=== PATIENT | female | born 2000 | race Caucasian/White ===

== ENCOUNTER 2020-04-24 12:30 | Emergency (ER) | payer BC, OTHER, SELFPAY ==
[2020-04-24] VITALS (8 sets, daily range): BP systolic 106–139; BP diastolic 59–84; PULSE 71–128; RESP 15–27; TEMP 36.4; O2SAT 98–100
--- NOTE | ~2020-04-24 | XR_ITS ---
EXAMINATION: XR chest 1V portable EXAM DATE: 04/24/2020 14:00 INDICATION: Cough and shortness of breath. TECHNIQUE: Portable AP frontal chest x-ray was obtained. There is no prior study for comparison. FINDINGS: The lungs are clear. There are no pleural effusions. The cardiomediastinal silhouette is within normal limits. There is no pneumothorax suspected. The bones and soft tissues are unremarkab le. IMPRESSION: Normal chest x-ray exam. Reviewed, dictated and finalized at location A. OMER CARE ASSOCIATE IMPRESSION: Normal chest x-ray exam.
--- NOTE | ~2020-04-24 | CT_ITS ---
EXAMINATION: CT soft tissue neck w con DATE: 04/24/2020 15:38 INDICATION: Sore throat. TECHNIQUE: Computed tomography (CT) of the neck was performed with 75 mL Omnipaque-350 intravenous co ntrast. Automated exposure control and iterative reconstruction technique were employed. The dose-dequan gth product was 580.77 mGy-cm. COMPARISON: None FINDINGS: There is mild bilateral high internal jugular chain lymphadenopathy. There is enlargement o f the adenoids and palatine tonsils. No abscess. There is no air in the nasopharynx or oropharynx. Th e epiglottis is not well-visualized due to the surrounding soft tissue. There is mild cervical spondy losis. IMPRESSION: 1. Enlarged adenoids and palatine tonsils. No abscess. 2. No air in the nasopharynx or oropharynx. The patient may have been in the middle of swallowing dur ing the scan. Airway management is recommended. I discussed this finding with Dr. Merrill. 3. Mild bilateral cervical lymphadenopathy, likely reactive. Reviewed, dictated and finalized at location B. GER UNIVERSAL IMPRESSION: 1. Enlarged adenoids and palatine tonsils. No abscess. 2. No air in the nasopharynx or oropharynx. The patient may have been in the mi ddle of swallowing during the scan. Airway management is recommended. I discuss ed this finding with Dr. Merrill. 3. Mild bilateral cervical lymphadenopathy, likely reactive.
--- NOTE | 2020-04-24 12:43 | ED.GENADULT ---
HPI - General Adult General Chief complaint: Headache Stated complaint: sore throat Time Seen by Provider: 04/24/20 12:37 Source: patient Mode of arrival: ambulatory Limitations: no limitations History of Present Illness HPI narrative: This patient is a 20 year old female who presents for evaluation of sore throat x 3 days. She states she has throat pain that has been presents for 3 days. She also complains of painful swallow. She states she has been unable to eat due to the pain. She also reports she is having nausea and vomiting, so she is unable to drink as well. She has associated runny nose, congestion. She is unsure of fever. She has been taking ibuprofen for her pain and she last took last night. Onset (ago): day(s) (3) Related Data Allergies Allergy/AdvReac Type Severity Reaction Status Date / Time No Known Allergies Allergy Verified 04/24/20 12:49 Review of Systems Review of Systems: All systems reviewed & are unremarkable except as noted in HPI and below Constitutional: Constitutional: Denies chills and Denies fever(s) ENT: Reports nasal congestion and Reports sore throat Cardiovascular: Cardiovascular: Denies chest pain Respiratory: Respiratory: Denies cough and Denies dyspnea Gastrointestinal: Gastrointestinal: Denies abdominal pain, Denies diarrhea, Reports nausea and Reports vomiting PMFSH Past Medical History Medical History (Updated 04/24/20 @ 16:55 by Adela Merrill MD) Patient denies medical problems Surgical History Surgical History (Updated 04/24/20 @ 22:39 by Adela Merrill MD) No significant past surgical history Social History Social History (Updated 04/24/20 @ 22:39 by Adela Merrill MD) Smoking status: Current some day smoker Substance use type: marijuana Exam Const: General: alert Orientation/consciousness: patient oriented x3 HENMT: Ears: external ears normal and TM's normal bilaterally Face and sinus: normal facial exam and sinuses nontender Mouth: Yes moist mucous membranes Throat: uvula midline, abnormal tonsil bilateral erythema and hypertrophy and posterior oropharynx abnormal erythema Other: no stridor Eyes: Pupils: Equal, round and reactive pupils present EOM: EOMs intact bilaterally Resp: Effort & Inspection: normal respiratory effort and no retractions Auscultation: clear to auscultation bilaterally Cardio: Rate: regular rate Rhythm: regular rhythm GI: GI Palp: Yes Soft to palpation, No Tenderness to palpation present (GI) and No Guarding due to palpation present (GI) Auscultation: normal bowel sounds Skin: Other: diaphoretic Neuro: General: patient oriented x3 and moves all extremities Course Reevaluation(s) Reevaluation #1: Patient states she feels better. She is able to swallow. She has not stridor. I reviewed her airway, I do not believe she has complete obstruction. She understands plan to discharge with antibiotics. She was instructed to return with difficulty breathing, worsening symptoms and vomiting. Date: 04/24/20 Time: 16:53 Vital Signs Vital signs: Vital Signs Temperature 97.5 F L 04/24/20 12:45 Pulse Rate 128 H 04/24/20 12:45 Respiratory Rate 18 04/24/20 12:45 Blood Pressure 139/84 04/24/20 12:45 Pulse Oximetry 98 04/24/20 12:45 Temperature 97.5 F L 04/24/20 12:45 Pulse Rate 71 04/24/20 17:23 Respiratory Rate 27 H 04/24/20 17:23 Blood Pressure 118/69 04/24/20 17:23 Pulse Oximetry 98 04/24/20 17:23 Medical Decision Making Vital Signs Vital Signs: Vital Signs Temperature 97.5 F L 04/24/20 12:45 Pulse Rate 128 H 04/24/20 12:45 Respiratory Rate 18 04/24/20 12:45 Blood Pressure 139/84 04/24/20 12:45 Pulse Oximetry 98 04/24/20 12:45 Temperature 97.5 F L 04/24/20 12:45 Pulse Rate 71 04/24/20 17:23 Respiratory Rate 27 H 04/24/20 17:23 Blood Pressure 118/69 04/24/20 17:23 Pulse Oximetry 98 04/24/20 17:23 Lab Data Lab results r
[2020-04-24] MEDS: SODIUM CHLORIDE 0.9% IV 1,000 ML 999 ML IV CONT ×2 (12:53→13:51)
[2020-04-24] MEDS: KETOROLAC 30 MG/ML VIAL (*BKC) IV PUSH (12:54)
[2020-04-24] MEDS: ONDANSETRON INJ 4 MG/2 ML VIAL IV PUSH ×2 (12:54→13:51)
[2020-04-24] MEDS: DEXAMETHASONE SOD PHOS INJ 4 MG/ML VIAL 10 MG IM (12:56)
[2020-04-24 13:05] LABS: Basophils Absolute Auto 0.1 K/mm3 (0.0-0.1); Basophils Percent Auto 0.3 % (0.2-1.2); Eosinophils Absolute Auto 0.2 K/mm3 (0-0.3); Eosinophils Percent Auto 1.1 % (0-4.4); Hematocrit 41.9 % (37.0-47.0); Hemoglobin 14.9 g/dL (12.0-15.0); Immature Granulocyte Percent A 0.7 % (0-0.5); Lymphocytes Absolute Auto 1.09 K/mm3 (0.9-3.2); Lymphocytes Percent Auto 7.4 % (18.3-44.2); Mean Corpuscular HGB Conc 35.6 g/dl (32-36); Mean Corpuscular Hemoglobin 31.5 pg (26-34); Mean Corpuscular Volume 88.6 fl (80-100); Monocytes Absolute Auto 1.8 K/mm3 (0.1-0.6); Monocytes Percent Auto 12.4 % (2.6-8.5); Neutrophils Absolute Auto 11.4 K/mm3 (1.3-6.7); Neutrophils Percent Auto 78.1 % (45.5-73.1); Platelet Count Result 157 k/mm3 (150-375); Red Blood Count 4.73 M/mm3 (4.2-5.4); Red Cell Distribution Width 12.2 % (11.5-14.5); White Blood Count 14.6 K/mm3 (4.5-10.0)
[2020-04-24 13:19] LABS: Alanine Aminotransferase 99 U/L (4-35); Albumin Level 4.4 g/dL (3.5-5.1); Alkaline Phosphatase 82 U/L (38-126); Anion Gap 7 mmol/L (8-16); Aspartate Amino Transferase 51 U/L (14-36); Bilirubin,Total 0.8 mg/dL (0.2-1.3); Blood Urea Nitrogen 9 mg/dL (7-17); Calcium 9.4 mg/dL (8.4-10.2); Carbon Dioxide 24 mmol/L (22-30); Chloride 106 mmol/L (98-107); Estimated CRCL calculation 94 ml/min; Estimated Glomerular Filt Rate > 60; Glucose 133 mg/dL (65-105); Potassium 3.9 mmol/L (3.4-5.0); Sodium 137 mmol/L (137-145)
[2020-04-24 14:37] LABS: Negative Monotest Control Negative (Negative); Positive Monotest Control Positive (Positive)
[2020-04-24 14:45] LABS: Monoscreen Negative (Negative)
[2020-04-24] MEDS: BELLADONNA ALK/PHENOB ELIX 10 ML, MAG HYDROX/ALUMINUM HYD/SIMETH 30 ML, LIDOCAINE HCL 2... PO (16:07)
[2020-04-24 21:58] LABS: SARS-CoV-2 RNA PCR Negative
== END 2020-04-24 17:31 | disposition home or self-care (01) ==
PROVIDERS: Emergency Provider General Practice; Family Provider Pediatrics; PCP Emergency Medicine
DX: J02.9 Acute pharyngitis, unspecified (principal); Z20.822 Contact with and (suspected) exposure to COVID-19; R11.2 Nausea with vomiting, unspecified
CPT/HCPCS: 36415; 70491; 71045; 80053; 81025; 85025; 86308; 87081; 87804; 87880; 96361; 96365; 96372; 96375; 96376; 99284; A9270; C9803; J0131; J1100; J1885; J2405; J7030; Q9967; U0003; U0005

== ENCOUNTER → 2020-12-26 01:43 | Outpatient (CLI) | payer BC, SELFPAY ==
[2020-12-26 17:06] LABS: SARS-CoV-2 RNA PCR Negative
== END ==
PROVIDERS: PCP Emergency Medicine; Visit Provider Emergency Medicine
DX: B34.9 Viral infection, unspecified (principal); Z20.822 Contact with and (suspected) exposure to COVID-19
CPT/HCPCS: C9803; U0003; U0005

== ENCOUNTER 2021-05-05 11:02 | Emergency (ER) | payer BC, SELFPAY ==
--- NOTE | ~2021-05-05 | CT_ITS ---
EXAMINATION: CT brain wo con DATE: 05/05/2021 11:59 INDICATION: Headache. TECHNIQUE: Computed tomography (CT) of the head was performed without intravenous contrast. The mA wa s adjusted according to patient size. Iterative reconstruction technique was employed. The dose-lengt h product was 605.33 mGy-cm. COMPARISON: Head CT 11/03/2018 FINDINGS: There is no intracranial hemorrhage, acute infarction, or abnormal intracranial mass lesion . The ventricles are normal in size. The orbits are normal. The paranasal sinuses are clear. The mast oid air cells are normal. IMPRESSION: 1. Normal brain. Reviewed, dictated and finalized at location A. AND POULTRY INSPECTOR IMPRESSION: 1. Normal brain.
--- NOTE | ~2021-05-05 | XR_ITS ---
EXAMINATION: XR chest 2V DATE: 05/05/2021 12:02 INDICATION: Vomiting. Cough. TECHNIQUE: Frontal and lateral views of the chest were obtained. COMPARISON: Chest single view 04/24/2020, chest CT 11/03/2018 FINDINGS: The chest demonstrates clear lungs without pneumonia, pleural effusion, or pneumothorax. Th e heart size is normal. IMPRESSION: 1. No acute cardiopulmonary disease. Reviewed, dictated and finalized at location A. LAINT CLERK
[2021-05-05 11:14] VITALS: BP 146/85; PULSE 110; RESP 16; TEMP 37.1; O2SAT 100
--- NOTE | 2021-05-05 11:24 | ED.HA ---
HPI - Headache General Chief Complaint: Headache Stated Complaint: vomiting blood Time Seen by Provider: 05/05/21 11:23 Source: patient Mode of arrival: ambulatory Limitations: no limitations History of Present Illness HPI Narrative: The patient is a 21-year-old female with a history of psoriasis presenting for evaluation of headache, nausea, vomiting. Patient states she began to have a dull, aching headache in her forehead which is mild in nature last night around midnight while she was watching television. Patient denies any eye pain, photophobia. Patient states that she went to sleep, headache was very mild at that point this morning, headache has persisted although patient states it did not awaken her from sleep. She denies any thunderclap sensation of the pain. She states that the headache pain this morning caused her to be nauseous and what has caused her to vomit 6 times. Patient reports that she had some blood streaking present in her emesis which is what prompted her to visit an urgent care and then the patient was referred to our facility patient denies any focal weakness or numbness. She reports a sore feeling in her neck. She denies any fever, chills, cough, shortness of breath or abdominal pain. She denies any diarrhea. Patient states that she ate a hamburger yesterday that may not have been fully cooked. She denies any other food indiscretions. She denies recent illnesses. No known history of Covid. Patient reports history of headache in the past. States that this is a more severe headache than in the past however. She is not on any immune modulators for her psoriasis. Denies history of diagnosed migraine. Related Data Allergies Allergy/AdvReac Type Severity Reaction Status Date / Time No Known Allergies Allergy Verified 05/05/21 11:29 Review of Systems Review of Systems: CONSTITUTIONAL: Denies fever, chills, or sweats. EYES: Denies visual changes, redness, or discharge. ENT: Denies rhinorrhea, congestion, sore throat, or otalgia. CARDIOVASCULAR: Denies chest pain, palpitations, or edema. RESPIRATORY: Denies cough or dyspnea. GASTROINTESTINAL: Denies abdominal pain, reports nausea and vomiting, denies diarrhea GENITOURINARY: Denies dysuria or hematuria. SKIN: Denies rash or itching. MUSCULOSKELETAL: Denies back pain, joint pain, or myalgia. NEUROLOGIC: Reports headache without focal numbness, or weakness. [facility] Past Medical History Medical History (Updated 05/05/21 @ 14:02 by Ana Barrios MD) Patient denies medical problems Surgical History Surgical History (Updated 05/05/21 @ 12:02 by Ana Barrios MD) No significant past surgical history Social History Social History Smoking status: Current some day smoker Substance use type: marijuana Exam Narrative: GENERAL: Awake, alert, conversant HEAD: Normocephalic, atraumatic. EYES: PERRLA and EOMI. ENT: Nares clear, no rhinorrhea or epistaxis. Mucous membranes moist. NECK: Supple. CHEST: No respiratory distress, breathing even and non labored HEART: Regular rate, sinus rhythm ABDOMEN:Non distended, non tender EXTREMITIES: Normal range of motion. No edema. SKIN: Warm, dry, no rash. NEURO:No focal deficits. Alert and oriented x3. Finger to nose intact bilaterally. EOMs intact without nystagmus. No facial droop/asymmetry noted bilaterally. Grimace intact. Intact sensation in face. Hearing intact bilaterally. Shoulder shrug intact. Strength 5/5 bilateral upper extremities. Strength 5/5 bilateral lower extremities. Reflexes 2+ patellar. Heel to nava intact bilaterally. Ambulatory exam deferred. Course Vital Signs Vital signs: Vital Signs Temperature 37.1 C 05/05/21 11:14 Pulse Rate 110 H 05/05/21 11:14 Respiratory Rate 16 05/05/21 11:14 Blood Pressure 146/85 H 05/05/21 11:14 Pulse Oximetry 100 05/05/21 11:14 Temperature 37.1 C 05/05/21 11:14 Pulse Rate 78
--- NOTE | 2021-05-05 11:47 | ECG_ITS ---
Measurements Intervals [place] Rate: 89 P: 33 MS: 146 QRS: 39 QRSD: 92 T: 17 QT: 353 QTc: 430 Interpretive Statements SINUS RHYTHM NORMAL ECG Electronically Signed On 05-05-2021 12:55:19 CORPORATE COMPLIANCE OFFICER by Rio Mcconnell D.O.
[2021-05-05] MEDS: METOCLOPRAMIDE HCL INJ 10 MG/2 ML VIAL IV PUSH (12:07)
[2021-05-05] MEDS: SODIUM CHLORIDE 0.9% IV 1,000 ML 999 ML IV CONT (12:07)
[2021-05-05 12:16] LABS: Basophils Absolute Auto 0.1 K/mm3 (0.0-0.1); Basophils Percent Auto 0.9 % (0.2-1.2); Eosinophils Absolute Auto 0.2 K/mm3 (0-0.3); Eosinophils Percent Auto 3.7 % (0-4.4); Hemoglobin 15.6 g/dL (12.0-15.0); Immature Granulocyte Absolute 0.09 K/mm3 (0.00-0.031); Immature Granulocyte Percent A 1.5 % (0-0.5); Lymphocytes Absolute Auto 0.38 K/mm3 (0.9-3.2); Lymphocytes Percent Auto 6.5 % (18.3-44.2); Mean Corpuscular HGB Conc 33.9 g/dl (32-36); Mean Corpuscular Volume 91.3 fl (80-100); Mean Platelet Volume 12.6 fl (7.4-10.4); Monocytes Absolute Auto 0.9 K/mm3 (0.1-0.6); Monocytes Percent Auto 15.7 % (2.6-8.5); Neutrophils Absolute Auto 4.2 K/mm3 (1.3-6.7); Neutrophils Percent Auto 71.7 % (45.5-73.1); Platelet Count Result 150 k/mm3 (150-375); Red Blood Count 5.04 M/mm3 (4.2-5.4); Red Cell Distribution Width 12.6 % (11.5-14.5); White Blood Count 5.9 K/mm3 (4.5-10.0)
[2021-05-05 12:27] LABS: Add Urine Microscopic? YES; Alanine Aminotransferase 345 U/L (4-35); Alkaline Phosphatase 67 U/L (38-126); Anion Gap 7 mmol/L (8-16); Appearance Urine Clear (Clear); Aspartate Amino Transferase 140 U/L (14-36); Bacteria Urine Trace /hpf; Bilirubin Urine Negative (Negative); Bilirubin,Total 0.4 mg/dL (0.2-1.3); Blood Urea Nitrogen 10 mg/dL (7-17); Blood Urine Negative (Negative); Calcium 9.7 mg/dL (8.4-10.2); Carbon Dioxide 21 mmol/L (22-30); Chloride 106 mmol/L (98-107); Color Urine Yellow (Yellow); Estimated CRCL calculation 93 ml/min; Estimated Glomerular Filt Rate > 60; Glucose 126 mg/dL (65-110); Glucose Urine UA Negative (Negative); Ketones Urine Negative (Negative); Leukocyte Esterase Ur Negative LEU/UL (Negative); Mucus Urine Few /lpf; Nitrate Urine Negative (Negative); Potassium 4.2 mmol/L (3.4-5.0); Protein Urine 1+ mg/dL (Negative); Prothrombin Time 12.7 Seconds (11.1-14.7); RBC Urine 0-2 /hpf (0-2); Sodium 134 mmol/L (137-145); Squamous Epithelial Cell Urine Many /hpf (Few); Urobilinogen Urine Negative mg/dL (<2.0); WBC Urine 0-3 /hpf
[2021-05-05 12:28] LABS: Partial Thromboplastin Time 29.1 SECONDS (22.3-36.8)
[2021-05-05 12:34] LABS: Specific Grav Ur 1.031 (1.001-1.035)
[2021-05-05 12:37] LABS: Troponin I < 0.012 ng/mL (0.000-0.034)
[2021-05-05] MEDS: MAGNESIUM SULF 2 GM/WATER 50ML 2 GM/50 ML BAG IVPB (13:03)
[2021-05-05 14:45] VITALS: BP 134/72; PULSE 78; RESP 18; O2SAT 99
[2021-05-05 15:23] LABS: Monoscreen Negative (Negative); Negative Monotest Control Negative (Negative); Positive Monotest Control Positive (Positive)
[2021-05-05 17:31] LABS: SARS-CoV-2 RNA PCR Positive
== END 2021-05-05 14:46 | disposition home or self-care (01) ==
PROVIDERS: Emergency Provider Emergency Medicine; PCP Emergency Medicine
DX: U07.1 COVID-19 (principal); R11.2 Nausea with vomiting, unspecified; R51.9 Headache, unspecified; R74.01 Elevation of levels of liver transaminase levels; F17.200 Nicotine dependence, unspecified, uncomplicated
CPT/HCPCS: 36415; 70450; 71046; 80053; 81001; 81025; 84484; 85025; 85610; 85730; 86308; 93005; 96365; 96367; 96375; 99284; C9803; J0131; J1100; J2765; J3475; J7030; U0003; U0005

== ENCOUNTER 2021-08-07 19:51 | Emergency (ER) | payer BC, SELFPAY ==
--- NOTE | ~2021-08-07 | XR_ITS ---
EXAMINATION: XR chest 2V DATE: 08/07/2021 22:32 INDICATION: Medial chest pain on inspiration. TECHNIQUE: Frontal and lateral views of the chest were obtained. COMPARISON: Chest 2 views 05/05/2021, chest CT 11/03/2018 FINDINGS: The chest demonstrates clear lungs without pneumonia, pleural effusion, or pneumothorax. Th e heart size is normal. IMPRESSION: 1. No acute cardiopulmonary disease. Reviewed, dictated and finalized at location A.
[2021-08-07 19:54] VITALS: BP 144/98; PULSE 98; RESP 18; TEMP 36.6; O2SAT 98
--- NOTE | 2021-08-07 22:03 | ECG_ITS ---
Measurements Intervals [place] Rate: 76 P: 37 AL: 167 QRS: 40 QRSD: 93 T: 26 QT: 376 QTc: 424 Interpretive Statements SINUS RHYTHM WITH SINUS ARRHYTHMIA NORMAL ECG Electronically Signed On 08-08-2021 6:40:38 CDT by Rio Mcconnell D.O.
--- NOTE | 2021-08-07 22:05 | ED.GENADULT ---
HPI - General Adult General Chief complaint: Shortness of Breath/Dyspnea <ENID Liu Last Filed: 08/08/21 03:05> Stated complaint: cant breathe <ENID Liu Last Filed: 08/08/21 03:05> Time Seen by Provider: 08/07/21 21:53 <ENID Liu Last Filed: 08/08/21 03:05> History of Present Illness HPI narrative: Patient is a 21-year-old female who presents emergency department for evaluation of some midsternal chest pain onset today. Patient states the pain is only there with deep respirations, and the pain is making it hard to breathe completely. She also reports a clicking sensation in her throat, but denies sore throat, trouble swallowing, throat swelling, fevers, chills, preceding illness. Denies known foreign body ingestion. <ENID Liu Last Filed: 08/08/21 03:05> Related Data Allergies/adverse reactions: Allergies Allergy/AdvReac Type Severity Reaction Status Date / Time No Known Allergies Allergy Verified 05/05/21 11:29 <ENID Liu Last Filed: 08/08/21 03:05> Review of Systems Review of Systems: Gen.: Denies fevers or chills Eyes: Denies eye pain or visual change ENT: Denies congestion Respiratory: Denies shortness of breath or cough CV: Reports chest pain. GI: Denies abdominal pain nausea, emesis or diarrhea : denies burning, urgency, frequency or hematuria Musculoskeletal: Denies back pain or muscle pain Neuro: Denies numbness, tingling, weakness or focal weakness Skin: Denies rash Except as documented, all other systems reviewed and negative <ENID Liu Last Filed: 08/08/21 03:05> All systems reviewed & are unremarkable except as noted in HPI and below <ENID Liu Last Filed: 08/08/21 03:05> [facility] Past Medical History Medical History: Medical History Patient denies medical problems <Eunice Arciniega PA-C - Last Filed: 08/08/21 03:05> Surgical History Surgical History: Surgical History No significant past surgical history <Eunice Arciniega PA-C - Last Filed: 08/08/21 03:05> Social History Social History: Social History Smoking status: Current some day smoker Substance use type: marijuana <Eunice Arciniega PA-C - Last Filed: 08/08/21 03:05> Exam Narrative: APPEARANCE: Well appearing, no pain in distress, well-nourished. Head normocephalic and atraumatic. EYES: PERRLA/EOMI, conjunctivae clear NOSE: No nasal drainage EARS: External ear normal in appearance THROAT: Nontender thyromegaly. Oropharynx is clear. Mucous membranes are moist. NECK: Nontender thyromegaly noted. No focal nodules palpated. Supple. No adenopathy, no masses. RESPIRATORY: Airway patent, respirations nonlabored. Clear to auscultation bilaterally, no rales, rhonchi, wheezing. CARDIOVASCULAR: Regular rate and rhythm without murmurs, rubs, or gallops. ABDOMINAL: Normoactive bowel sounds. Soft, nontender, nondistended. No rebound tenderness or guarding. MUSCULOSKELETAL: Equal radial pulses. Extremities are warm and well-perfused. Moves all extremities well. No edema. NEURO: Normal speech. No focal neurologic deficits. SKIN: Skin is warm and dry. No rashes. PSYCHIATRIC: Normal affect/mood. <Eunice Arciniega PA-C - Last Filed: 08/08/21 03:05> Course MANAGER CARDIAC/PA Physician Supervision I did not see this patient nor was the care plan discussed with me, labs and imaging reviewed. I was available for evaluation and consultation, I agree with the documentation <Vincent Dyer MD - Last Filed: 08/08/21 03:30> Vital Signs Vital signs: Vital Signs Temperature 36.6 C 08/07/21 19:54 Pulse Rate 98 08/07/21 19:54 Respiratory Rate 18 08/07/21 19:54 Bloo
[2021-08-07 23:13] LABS: Basophils Absolute Auto 0.1 K/mm3 (0.0-0.1); Basophils Percent Auto 0.8 % (0.2-1.2); Eosinophils Absolute Auto 0.5 K/mm3 (0-0.3); Hematocrit 44.9 % (37.0-47.0); Immature Granulocyte Absolute 0.04 K/mm3 (0.00-0.031); Immature Granulocyte Percent A 0.6 % (0-0.5); Lymphocytes Absolute Auto 2.23 K/mm3 (0.9-3.2); Lymphocytes Percent Auto 31.3 % (18.3-44.2); Mean Corpuscular HGB Conc 33.4 g/dl (32-36); Mean Corpuscular Hemoglobin 30.5 pg (26-34); Mean Corpuscular Volume 91.4 fl (80-100); Monocytes Absolute Auto 0.7 K/mm3 (0.1-0.6); Monocytes Percent Auto 9.7 % (2.6-8.5); Neutrophils Absolute Auto 3.6 K/mm3 (1.3-6.7); Neutrophils Percent Auto 50.6 % (45.5-73.1); Platelet Count Result 163 k/mm3 (150-375); Red Blood Count 4.91 M/mm3 (4.2-5.4); Red Cell Distribution Width 12.5 % (11.5-14.5); White Blood Count 7.1 K/mm3 (4.5-10.0)
[2021-08-07 23:24] LABS: Lipase 42 U/L (23-300)
[2021-08-07 23:30] LABS: Alanine Aminotransferase 209 U/L (4-35); Albumin Level 4.2 g/dL (3.5-5.1); Alkaline Phosphatase 63 U/L (38-126); Anion Gap 8 mmol/L (8-16); Aspartate Amino Transferase 89 U/L (14-36); Bilirubin,Total 0.9 mg/dL (0.2-1.3); Blood Urea Nitrogen 8 mg/dL (7-17); Carbon Dioxide 24 mmol/L (22-30); Chloride 106 mmol/L (98-107); Estimated CRCL calculation 104 ml/min; Estimated Glomerular Filt Rate > 60; Glucose 91 mg/dL (65-110); Potassium 3.8 mmol/L (3.4-5.0); Sodium 138 mmol/L (137-145)
[2021-08-07] MEDS: BELLADONNA ALK/PHENOB ELIX 10 ML, MAG HYDROX/ALUMINUM HYD/SIMETH 30 ML, LIDOCAINE HCL 2... PO (23:41)
[2021-08-08 00:02] VITALS: PULSE 75; RESP 18; O2SAT 100
[2021-08-08 00:04] VITALS: O2SAT 100
[2021-08-08 00:53] LABS: D Dimer 0.34 ug/mL (<0.48)
== END 2021-08-08 02:15 | disposition home or self-care (01) ==
PROVIDERS: Physician Assistant; Emergency Provider Emergency Medicine; PCP Emergency Medicine
DX: R09.89 Other specified symptoms and signs involving the circulatory and respiratory systems (principal); F17.200 Nicotine dependence, unspecified, uncomplicated
CPT/HCPCS: 36415; 71046; 80053; 83690; 84443; 85025; 85380; 93005; 99283; A9270

== ENCOUNTER → 2021-09-04 11:27 | Outpatient (CLI) | payer BC, SELFPAY ==
--- NOTE | ~2021-09-04 | US_ITS ---
US abdomen complete EXAMINATION: US Abdomen Complete INDICATION: Liver disease. PROCEDURE: Realtime High Resolution abdomen ultrasound. COMPARISON: No prior studies for comparison FINDINGS: There are gallstones. Common bile duct measures 5 mm. Liver echotexture is increased, consistent with fatty infiltration.. Pancreas within normal limits. Pancreatic tail is obscured by bowel gas. Spleen is unremarkeable. Renal echotexture is within norm al limits bilaterally without hydronephrosis, contour deforming mass or renal stone. Right kidney yashira sures 10.3 cm. Left kidney measures 11.3 cm. Visualized aspects of the aorta and IVC are within normal limits. Portal vein is patent. No sonograph ic Vidal's sign indicated by the technologist. IMPRESSION: 1: Cholelithiasis. 2: Hepatic steatosis. Reviewed, dictated and finalized at location A.
--- NOTE | ~2021-09-04 | US_ITS ---
EXAMINATION: US thyroid DATE: 09/04/2021 12:03 INDICATION: Goiter. TECHNIQUE: Multiple ultrasound images of the thyroid were obtained. COMPARISON: Neck CT 04/24/2020 FINDINGS: The right thyroid lobe measures 4.8 x 1.8 x 1.6 cm. The left thyroid lobe measures 4.4 x 1.5 x 1.7 c m. There is normal echotexture and echogenicity throughout the thyroid gland. No discrete nodules id entified. Normal vascular flow is present. IMPRESSION: 1. Normal thyroid. Reviewed, dictated and finalized at location A. IMPRESSION: 1. Normal thyroid.
== END ==
PROVIDERS: PCP Emergency Medicine; Visit Provider Emergency Medicine
DX: K76.0 Fatty (change of) liver, not elsewhere classified (principal); R04.9 Hemorrhage from respiratory passages, unspecified; K80.20 Calculus of gallbladder without cholecystitis without obstruction
CPT/HCPCS: 76536; 76700

== ENCOUNTER 2022-08-24 17:18 | Emergency (ER) | payer BC, SELFPAY ==
[2022-08-24 17:41] VITALS: BP 132/78; PULSE 95; RESP 18; TEMP 36.5; O2SAT 98
[2022-08-24 17:42] LABS: Basophils Absolute Auto 0.1 K/mm3 (0.0-0.1); Basophils Percent Auto 0.7 % (0.2-1.2); Eosinophils Absolute Auto 0.6 K/mm3 (0-0.3); Eosinophils Percent Auto 6.2 % (0-4.4); Hematocrit 39.8 % (37.0-47.0); Hemoglobin 13.5 g/dL (12.0-15.0); Immature Granulocyte Absolute 0.04 K/mm3 (0.00-0.031); Immature Granulocyte Percent A 0.4 % (0-0.5); Immature Platelet Fraction Pct 10.7 % (0.9-11.2); Lymphocytes Absolute Auto 1.93 K/mm3 (0.9-3.2); Mean Corpuscular HGB Conc 33.9 g/dl (32-36); Mean Corpuscular Hemoglobin 31.1 pg (26-34); Mean Corpuscular Volume 91.7 fl (80-100); Mean Platelet Volume 11.5 fl (7.4-10.4); Monocytes Absolute Auto 0.8 K/mm3 (0.1-0.6); Neutrophils Absolute Auto 5.8 K/mm3 (1.3-6.7); Neutrophils Percent Auto 62.7 % (45.5-73.1); Platelet Count Result 148 k/mm3 (150-375); Red Blood Count 4.34 M/mm3 (4.2-5.4); Red Cell Distribution Width 12.6 % (11.5-14.5); White Blood Count 9.2 K/mm3 (4.5-10.0)
[2022-08-24 17:50] LABS: Alanine Aminotransferase 84 U/L (6-35); Albumin Level 4.2 g/dL (3.5-5.1); Alkaline Phosphatase 53 U/L (38-126); Anion Gap 6 mmol/L (8-16); Aspartate Amino Transferase 40 U/L (14-36); Bilirubin,Total 0.5 mg/dL (0.2-1.3); Blood Urea Nitrogen 14 mg/dL (7-17); Calcium 8.9 mg/dL (8.4-10.2); Carbon Dioxide 30 mmol/L (22-30); Chloride 102 mmol/L (98-107); Estimated CRCL calculation 103 ml/min; Estimated Glomerular Filt Rate > 60; Glucose 87 mg/dL (65-110); Lipase 90 U/L (23-300); Potassium 3.7 mmol/L (3.4-5.0); Sodium 138 mmol/L (137-145)
[2022-08-24 17:56] LABS: Appearance Urine Clear (Clear); Bilirubin Urine Negative (Negative); Blood Urine Negative (Negative); Color Urine Yellow (Yellow); Glucose Urine UA Negative (Negative); Ketones Urine Negative (Negative); Leukocyte Esterase Ur Negative LEU/UL (Negative); Nitrate Urine Negative (Negative); Protein Urine Negative (Negative); Specific Grav Ur 1.023 (1.001-1.035)
[2022-08-24 18:02] LABS: Add Urine Microscopic? NO
[2022-08-24] MEDS: KETOROLAC 15 MG/ML VIAL (*BKC) IV PUSH (21:23)
--- NOTE | 2022-08-24 21:36 | ED.GENADULT ---
HPI - General Adult General Chief complaint: Nausea/Vomiting/Diarrhea <ENID Schilling Last Filed: 08/25/22 01:13> Stated complaint: n/v <ENID Schilling Last Filed: 08/25/22 01:13> Time Seen by Provider: 08/24/22 21:01 <ENID Schilling Last Filed: 08/25/22 01:13> Source: patient <ENID Schilling Last Filed: 08/25/22 01:13> Mode of arrival: ambulatory <ENID Schilling Last Filed: 08/25/22 01:13> Limitations: no limitations <ENID Schilling Last Filed: 08/25/22 01:13> History of Present Illness HPI narrative: This is a 22-year-old female presents to the ED with chief complaint of headache and nausea and vomiting. She states this all started earlier today. She has a history of headaches in the past. Patient reports a bandlike distribution of pain to bilateral temples. She states she is still nauseous. Reports over 5 episodes of vomiting. Denies neck stiffness or neck pain. She states after she had the episodes of vomiting she started to become a little light headed. She denies any LOC. Denies any abdominal pain, fevers, chills, diarrhea, cough, chest pain, shortness of breath. <ENID Schilling Last Filed: 08/25/22 01:13> Related Data Allergies/adverse reactions: Allergies Allergy/AdvReac Type Severity Reaction Status Date / Time No Known Allergies Allergy Verified 05/05/21 11:29 <Nabil Avilez PA-C - Last Filed: 08/25/22 01:13> Review of Systems Review of Systems: CONSTITUTIONAL: Denies fever, chills, or sweats. EYES: Denies visual changes, redness, or discharge. ENT: Denies rhinorrhea, congestion, sore throat, or otalgia. CARDIOVASCULAR: Denies chest pain, palpitations, or edema. RESPIRATORY: Denies cough or dyspnea. GASTROINTESTINAL: See HPI GENITOURINARY: Denies dysuria or hematuria. SKIN: Denies rash or itching. MUSCULOSKELETAL: Denies back pain, joint pain, or myalgia. NEUROLOGIC: See HPI PSYCHIATRIC: Denies anxiety or depression. <Nabil Avilez PA-C - Last Filed: 08/25/22 01:13> PMFSH Past Medical History Medical History: Medical History Patient denies medical problems <Nabil Avilez PA-C - Last Filed: 08/25/22 01:13> Surgical History Surgical History: Surgical History No significant past surgical history <Nabil Avilez PA-C - Last Filed: 08/25/22 01:13> Social History Social History: Social History Smoking status: Current some day smoker Substance use type: marijuana <Nabil Avilze PA-C - Last Filed: 08/25/22 01:13> Exam Narrative: GENERAL: Well-appearing, well-nourished, and in no acute distress. HEAD: Normocephalic, atraumatic. Mild tenderness to the temporal scalp bilaterally. EYES: PERRLA and EOMI. ENT: Nares clear, no rhinorrhea or epistaxis. Mucous membranes moist. Oropharynx without tonsillar hypertrophy exudate or other lesions. NECK: Supple. No adenopathy or masses. CHEST: No respiratory distress. Clear to auscultation. No wheezes rales or rhonchi HEART: Regular rate and rhythm. No murmur heard. Slightly weak pulses throughout the extremities. ABDOMEN: Soft, nontender, nondistended, normal active bowel sounds. MSK: Normal range of motion. No edema. SKIN: Warm, dry, no rash. Decreased skin turgor. No pallor. NEURO: Alert and oriented x3. No focal deficits. Cranial nerves II through XII intact. PSYCH: Normal mood and affect. <Nabil Avilez PA-C - Last Filed: 08/25/22 01:13> Course TEST BAKER/PA Physician Supervision This is a was performed by both a physician and an APC. I performed all aspects of the MDM as documented w/ the following additions: 22-year-old female presenting with headache. This is her typical headache and there are no concerning findings on history and physical.
[2022-08-24] MEDS: ONDANSETRON INJ 4 MG/2 ML VIAL IV PUSH (22:15)
[2022-08-24] MEDS: PROCHLORPERAZINE EDISYLATE 10 MG/2 ML VIAL IV PUSH (22:15)
[2022-08-24] MEDS: diphenhydrAMINE HCl INJ 50 MG/ML VIAL 25 MG IV PUSH (22:15)
[2022-08-24 22:16] VITALS: BP 123/74; PULSE 60; RESP 14; TEMP 36.9; O2SAT 97
[2022-08-24] MEDS: SODIUM CHLORIDE 0.9% IV 1,000 ML 999 ML IV CONT (22:16)
== END 2022-08-25 00:30 | disposition home or self-care (01) ==
PROVIDERS: Preventive Medicine Aerospace Medicine; Emergency Provider Physician Assistant; PCP Emergency Medicine
DX: R51.9 Headache, unspecified (principal)
CPT/HCPCS: 36415; 80053; 81003; 81025; 83690; 85025; 85055; 96361; 96374; 96375; 99284; J0780; J1200; J1885; J2405; J7030